=== PATIENT | female | born 1980 | race Caucasian/White ===

== ENCOUNTER 2023-12-09 10:36 | Outpatient (AMB) | payer MEDICAID, SELFPAY ==
--- NOTE | 2023-12-09 10:47 | A.OFFVIS_ITS ---
Intake Vital Signs 12/09/23 10:59 Height 5 ft 3 in Weight 144 lb 8 oz BMI 25.6 BP 130/60 Blood Pressure Location Lt brachial Position Sitting Respiration 16 Pulse 90 Pulse Source Pulse Oximeter Pulse Oximetry (%) 99 Oxygen Delivery Method Room Air Intake Visit Reasons: Coccygeal Pain/confirmed Intake Note: Patient comes in for initial visit was referred by spine. Reports pain 11/27. Allergies hydrocodone [From Vicodin] Allergy (Unknown, Verified 12/09/23 11:01) Unknown latex Allergy (Unknown, Verified 12/09/23 11:01) Unknown oxycodone [From Percocet] Allergy (Unknown, Verified 12/09/23 11:01) Unknown Penicillins Allergy (Unknown, Verified 12/09/23 11:01) Unknown HPI HPI Comments History of Present Illness Details Marcus ( pronounsed as Louise) is very pleasant 43 years old female who is in my office with complains on coccydynia. He is referred here by [facility]. She reported that in December 2020 she while on vacation in [place] from [place] into [place] and hit her coccyx. Since then she is suffering severe coccydynia. She reports that some images were done but did not demonstrate any fractures. She reports that because of her pain she can not sleep normally can not do activities of daily living she can not take care of herself but she can not function normally. In terms of ti ssue damage she reports her pain is pulsing, throbbing, pounding, sharp, cutting, lacerating, hot burning, searing, tingling, stinging, dull, achy, sectioning, suffocating, pink punishing and killing sensation. She reports that she is working full-time. She reports that sitting aggravates her pain and no oral medication help her pain. She reported [facility] injections which are described as coccygeal infiltration injections. They did about 4 injections of this nature to her with pain relief lasting from 3-4 month. However recently they refused to continue this procedures because the said that it is contraindicated for her they also reported that injections with time decreased in effectiveness. She was subject of multiple physical therapy examination. She tried chiropractic manipulations and acupuncture. She tried a massage therapy as well but none of it was effective for her pain control Past medical history significant for fibromyalgia, past surgical history significant for tubal ligation and tonsillectomy. Social history she is working full-time, she denies smoking cigarettes she occasionally drinks alcohol she occasionally uses cannabis gummies and she denies other recreational drugs. Review of Systems Const Denies chills and Denies fever(s) ENT Reports Normal hearing present Card Denies chest pain, Denies chest pain at rest, Denies chest pain with activity, Denies syncope, Denies rapid heart rate, Denies pedal edema and Denies edema Resp Denies chest congestion, Denies cough and Denies hemoptysis GI Denies abdominal pain Denies urinary incontinence Neuro Reports Normal hearing present, Denies Abnormal speech present, Denies syncope, Denies lack of coordination and Denies Sensory deficit (Neuro) Psych Denies no additional complaints and Denies depression Physical Exam Const General: cooperative, healthy appearing, comfortable, no acute distress, well developed, alert and awake Nutritional Appearance: average body habitus and well nourished Eyes General: appearance normal, both eyes and all related structures Pupils: Equal, round and reactive pupils present EOM: EOMs intact bilaterally Neck Neck: Yes full ROM Chest Chest palpation & inspection: normal inspection of the chest Resp Effort & Inspection: normal respiratory effort, able to speak in complete sentences, normal respiratory pattern, no audible wheezes and no cough Cardio Jugular venous distension: no JVD GI Inspection: Yes normal to inspection Back/Spine/Pelvis Other: Tenderness in projection of the tip of the coccyx. Neuro Cranial nerves: Yes CN's II-XII intact bilaterally, Yes Equal, round and reactive pupils present, Yes Normal hearing present and Yes Ability to bilaterally elevate shoulders present Speech: No Abnormal speech present Gait exam (Neuro): Normal gait present Motor exam (neuro): 5/5 motor strength present throughout Sensory Exam: No Sensory deficit (Neuro) Extrem General: No pedal edema Psych Speech and movement: Normal speech and movement present Affect: normal affect Attitude: cooperative Thought process: Normal thought process present Thought content: Normal thought content present Insight: Good insight present (Psych) Judgement: Good judgement present (Psych) Assessment & Plan Assessment & Plan (1) Coccydynia: Code(s): M53.3 - Sacrococcygeal disorders, not elsewhere classified (2) Chronic pain syndrome: Code(s): G89.4 - Chronic pain syndrome (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 First of all if she received infiltration of the coccygeal bones with steroid and never received ganglion impar at [facility] we can try ganglion impar injection. Depending on the effect of the ganglion impar we might continue it in the future or consider neuromodulation. Both spinal cord stimulator and intrathecal pain pump were discussed with the patient. She would need to go for psychological evaluation before considering trials for those modalities. She will bring me the information from [facility] on her next appointment about the nature of the procedures: I requested her to bring the disc with the images from the [facility] or bring me the detailed description of the procedures she received. Meanwhile she will be waiting for psychological evaluation. Coding Level of Care Code New Pt Level 3 (88984) Diagnoses Coccydynia M53.3 Chronic pain syndrome G89.4 Traumatic coccydynia M53.3
[2023-12-09 10:59] VITALS: BP 130/60; PULSE 90; RESP 16; O2SAT 99; BMI 25.6
== END 2023-12-09 11:14 | disposition home or self-care (01) ==
PROVIDERS: PCP Nurse Practitioner Family; Visit Provider Anesthesiology
DX: M53.3 Sacrococcygeal disorders, not elsewhere classified (principal); G89.4 Chronic pain syndrome
CPT/HCPCS: 99203

== ENCOUNTER → 2023-12-09 10:36 | Outpatient (BNVA) | payer MEDICAID, SELFPAY | PROVIDERS: PCP Nurse Practitioner Family; Visit Provider Anesthesiology | DX: M53.3 Sacrococcygeal disorders, not elsewhere classified (principal); G89.4 Chronic pain syndrome | CPT/HCPCS: 99202 ==

== ENCOUNTER 2024-04-15 15:19 | Outpatient (AMB) | payer OTHER, SELFPAY ==
--- NOTE | 2024-04-15 15:21 | MHC.OFFVIS ---
Vital Signs 04/15/24 15:27 Height 5 ft 3 in Weight 148 lb 4 oz BMI 26.3 BP 146/65 H Blood Pressure Location Lt brachial Position Sitting Respiration 17 Pulse 74 Pulse Source Pulse Oximeter Pulse Oximetry (%) 99 Oxygen Delivery Method Room Air Intake Visit Reasons: Nerve Block Discussion Intake Note: Patient comes in to discuss nerve block. Reports pain 5/10. Allergies hydrocodone [From Vicodin] Allergy (Unknown, Verified 04/15/24 15:27) Unknown latex Allergy (Unknown, Verified 04/15/24 15:27) Unknown oxycodone [From Percocet] Allergy (Unknown, Verified 04/15/24 15:27) Unknown Penicillins Allergy (Unknown, Verified 04/15/24 15:27) Unknown HPI Comments Details: Marcus ( pronounsed as Louise) is back in my office with continuous complain on coccydynia. She had several steroid injections done with 1 of the practitioners at [facility], I received the description of the procedure it sounds like the needle was placed next to the tip of the coccyx under fluoroscopy guidance. So it was not a ganglion impar. According to the patient it helped her for the next 6 months, however now pain is back. I am not sure if ganglion impar will work better for the patient. However she insists on scheduling it I will proceed with scheduling her for ganglion impar injection. We discussed possibility of treating the pain with neuromodulation such as pain pump. This will be implantable device patient is not very eager to go for implantable device at such a young age. We also discussed possibility of treating her ganglion impar with radiofrequency ablation, I honestly told her that I am not doing this procedure. Also chemical ablation with phenol and alcohol was discussed, however risk of this procedure to create rectal fistula is significant and patient does not want to consider this. We agreed that I will schedule her for ganglion impar injection and then we will see the results. Prior: is very pleasant 43 years old female who is in my office with complains on coccydynia. He is referred here by [facility]. She reported that in December 2020 she while on vacation in [place] and hit her coccyx. Since then she is suffering severe coccydynia. She reports that some images were done but did not demonstrate any fractures. She reports that because of her pain she can not sleep normally can not do activities of daily living she can not take care of herself but she can not function normally. In terms of tissue damage she reports her pain is pulsing, throbbing, pounding, sharp, cutting, lacerating, hot burning, searing, tingling, stinging, dull, achy, sectioning, suffocating, pink punishing and killing sensation. She reports that she is working full-time. She reports that sitting aggravates her pain and no oral medication help her pain. She reported that [facility] performed injections which are described as coccygeal infiltration injections. They did about 4 injections of this nature to her with pain relief lasting from 3-4 month. However recently they refused to continue this procedures because the said that it is contraindicated for her they also reported that injections with time decreased in effectiveness. She was subject of multiple physical therapy examination. She tried chiropractic manipulations and acupuncture. She tried a massage therapy as well but none of it was effective for her pain control Past medical history significant for fibromyalgia, past surgical history significant for tubal ligation and tonsillectomy. Social history she is working full-time, she denies smoking cigarettes she occasionally drinks alcohol she occasionally uses cannabis gummies and she denies other recreational drugs. Review of Systems Const All systems reviewed & are unremarkable except as noted in HPI and below ENT Reports Normal hearing present Neuro Reports Normal hearing present, Denies Abnormal speech present and Denies Sensory deficit (Neuro) Physical Exam Vital Signs: Last Vital Signs Pulse 74 04/15/24 15:27 Resp 17 04/15/24 15:27 BP 146/65 H 04/15/24 15:27 Pulse Ox 99 04/15/24 15:27 Oxygen Delivery Method Room Air 04/15/24 15:27 BMI result Body Mass Index 26.3 Const General: cooperative, healthy appearing, comfortable, no acute distress, well developed, alert and awake Nutritional Appearance: average body habitus and well nourished Eyes General: appearance normal, both eyes and all related structures Pupils: Equal, round and reactive pupils present EOM: EOMs intact bilaterally Neck Neck: Yes full ROM Chest Chest palpation & inspection: normal inspection of the chest Resp Effort & Inspection: normal respiratory effort, able to speak in complete sentences, normal respiratory pattern, no audible wheezes and no cough Cardio Jugular venous distension: no JVD GI Inspection: Yes normal to inspection Back/Spine/Pelvis Other: Tenderness in projection of the tip of the coccyx. Neuro Cranial nerves: Yes CN's II-XII intact bilaterally, Yes Equal, round and reactive pupils present, Yes Normal hearing present and Yes Ability to bilaterally elevate shoulders present Speech: No Abnormal speech present Gait exam (Neuro): Normal gait present Motor exam (neuro): 5/5 motor strength present throughout Sensory Exam: No Sensory deficit (Neuro) Extrem General: No pedal edema Psych Speech and movement: Normal speech and movement present Affect: normal affect Attitude: cooperative Thought process: Normal thought process present Thought content: Normal thought content present Insight: Good insight present (Psych) Judgement: Good judgement present (Psych) Assessment & Plan Assessment & Plan (1) Coccydynia: Code(s): M53.3 - Sacrococcygeal disorders, not elsewhere classified Category: Medical (2) Chronic pain syndrome: Code(s): G89.4 - Chronic pain syndrome Category: Medical (3) Traumatic coccydynia: Code(s): M53.3 - Sacrococcygeal disorders, not elsewhere classified Category: Medical Plan I will schedule this patient for ganglion impar injection. I will see her immediately after the procedure. The injections which she received at [facility] was directed to the tip of the coccyx. The injection gave her significant achievement of pain relief for up to 5 months. I told her that ganglion impar injection might not be as effective as the injection into the tip of the coccyx. She insists on me trying this procedure. RFA of the ganglion impar discussed, chemical ablation of ganglion impar discussed, the risks of creation of the perirectal fistula was explained to the patient. She is very negative about neuromodulation she is negative about implantable devices. Coding Level of Care Code Est Pt Level 3 (23497) Diagnoses Coccydynia M53.3 Chronic pain syndrome G89.4 Traumatic coccydynia M53.3
[2024-04-15 15:27] VITALS: BP 146/65; PULSE 74; RESP 17; O2SAT 99; BMI 26.3
== END 2024-04-15 15:46 | disposition home or self-care (01) ==
PROVIDERS: PCP Nurse Practitioner Family; Visit Provider Anesthesiology
DX: M53.3 Sacrococcygeal disorders, not elsewhere classified (principal); G89.4 Chronic pain syndrome
CPT/HCPCS: 99213

== ENCOUNTER → 2024-04-15 15:19 | Outpatient (BNVA) | payer OTHER, SELFPAY | PROVIDERS: PCP Nurse Practitioner Family; Visit Provider Anesthesiology | DX: M53.3 Sacrococcygeal disorders, not elsewhere classified (principal); G89.4 Chronic pain syndrome | CPT/HCPCS: 99212 ==

== ENCOUNTER 2024-06-09 06:25 | Outpatient (REF) | payer OTHER, SELFPAY ==
--- NOTE | ~2024-06-09 | FL_ITS ---
EXAMINATION: XR FLUOROSCOPY WITH IMAGES CLINICAL INFORMATION: Sacrococcygeal disorders, not elsewhere classified. COMPARISON: None available. TECHNIQUE: Fluoroscopy provided to: Dr. Grant Fluoroscopy time: 0.3 minutes DAP: 0.0855 [id number] Images: 4 FINDINGS: Sequential images demonstrate needle placement and injection into the left S5 nerve root sheath. FL/FL guidance in treatment room IMPRESSION: Fluoroscopic guidance. Please refer to the full operative report for details. Electronically signed by: Brendan Martinez MD 08/11/2024 11:46 AM EDT
== END 2024-06-09 06:26 | disposition home or self-care (01) ==
LOC: CF 06:25
PROVIDERS: Visit Provider Anesthesiology
DX: M53.3 Sacrococcygeal disorders, not elsewhere classified (principal); G89.4 Chronic pain syndrome
CPT/HCPCS: 64999; J2795; J3301; Q9967

== ENCOUNTER 2024-06-09 14:09 | Outpatient (AMB) | payer OTHER, SELFPAY ==
--- NOTE | 2024-06-09 14:40 | MHC.OFFVIS ---
Vital Signs 06/09/24 14:45 06/09/24 14:46 Height 5 ft 3 in 5 ft 3 in Weight 148 lb 4 oz 148 lb 4 oz BMI 26.3 26.3 BP 120/75 142/85 H Blood Pressure Location Lt brachial Lt brachial Position Sitting Sitting Respiration 16 17 Pulse 71 75 Pulse Source Pulse Oximeter Pulse Oximeter Pulse Oximetry (%) 98 99 Oxygen Delivery Method Room Air Room Air Comment pre-op post-op Intake Visit Reasons: ganglin impar block (okay to book @ time per ) Allergies hydrocodone [From Vicodin] Allergy (Unknown, Verified 06/09/24 14:48) Unknown latex Allergy (Unknown, Verified 06/09/24 14:48) Unknown oxycodone [From Percocet] Allergy (Unknown, Verified 06/09/24 14:48) Unknown Penicillins Allergy (Unknown, Verified 06/09/24 14:48) Unknown Physical Exam Vital Signs: Last Vital Signs Pulse 75 06/09/24 14:46 Resp 17 06/09/24 14:46 BP 142/85 H 06/09/24 14:46 Pulse Ox 99 06/09/24 14:46 Oxygen Delivery Method Room Air 06/09/24 14:46 BMI result Body Mass Index 26.3 Assessment & Plan Assessment & Plan (1) Coccydynia: Code(s): M53.3 - Sacrococcygeal disorders, not elsewhere classified Category: Medical Plan: ganglion impar injection. Informed consent was explained to the patient. All questions were explained and answered. The patient was taken inside the operating room. The patient was positioned prone on operating table . Time-out was performed delineating correct site, side, the nature of the procedure, patient's allergy, preoperative antibiotic if needed. All operating room staff was participating in OR time-out procedure. C-arm was brought over the operating field and picture of the patient's lower pelvis was demonstrated on the screen. coccygeal spine was delineated on the screen. intervertebral disc between coccyceal vertebrae 1 and 2 was chosen as the site of the needle insertion. The skin in the progection of the target was injected with local anesthetic lidocaine 2% 2 mls and after that 22 g 3&1/2 inch needle was inserted through the skin wheal and advanced to the disc on AP view in the strict midline fashion. After that the C-arm was switched to the lateral position and the needle was continued to slowly advance through the intervertebral disc on the lateral view 1-2 mm at a time. When the tip of the needle on the lateral view cleard 2 mm from the anterior surface of the coccygeal spine silhouette the injection of the contrast was performed demonstrating retropelvic spread of the contrast and no intravesicular, no intra rectal and no intravesicular spread of the contrast. After that treatment medicine solution was injected containing ropivacaine 0.5% 5 mls and kenalog 40 mg. After that the needle was removed and sterile dressing with bacitracin was applied.The patient tolerated procedure well. (2) Chronic pain syndrome: Code(s): G89.4 - Chronic pain syndrome Category: Medical (3) Traumatic coccydynia: Code(s): M53.3 - Sacrococcygeal disorders, not elsewhere classified Category: Medical Plan I will schedule this patient for ganglion impar injection. I will see her immediately after the procedure. The injections which she received at [facility] was directed to the tip of the coccyx. The injection gave her significant achievement of pain relief for up to 5 months. I told her that ganglion impar injection might not be as effective as the injection into the tip of the coccyx. She insists on me trying this procedure. RFA of the ganglion impar discussed, chemical ablation of ganglion impar discussed, the risks of creation of the perirectal fistula was explained to the patient. She is very negative about neuromodulation she is negative about implantable devices. Orders: Orders FL guidance in treatment room Today M53.3 - Sacrococcygeal disorders, not elsewhere classified Coding Level of Care Code Procedure Only Diagnoses Coccydynia M53.3 Chronic pain syndrome G89.4 Traumatic coccydynia M53.3
[2024-06-09 14:45] VITALS: BP 120/75; PULSE 71; RESP 16; O2SAT 98; BMI 26.3
[2024-06-09 14:46] VITALS: BP 142/85; PULSE 75; RESP 17; O2SAT 99; BMI 26.3
== END 2024-06-09 14:49 | disposition home or self-care (01) ==
PROVIDERS: PCP Internal Medicine; Visit Provider Anesthesiology
DX: G89.4 Chronic pain syndrome (principal); M53.3 Sacrococcygeal disorders, not elsewhere classified
CPT/HCPCS: 64999; 77002

== ENCOUNTER 2024-06-25 13:02 | Outpatient (AMB) | payer OTHER, SELFPAY ==
--- NOTE | 2024-06-25 13:16 | A.OFFVIS_ITS ---
Vital Signs 06/25/24 13:21 Height 5 ft 3 in Weight 148 lb 4 oz BMI 26.3 BP 150/72 H Blood Pressure Location Lt brachial Position Sitting Respiration 16 Pulse 69 Pulse Source Pulse Oximeter Pulse Oximetry (%) 98 Oxygen Delivery Method Room Air Intake Visit Reasons: Ganglin impar injection Intake Note: Patient comes in for post-op. Reports pain 4/10. Allergies hydrocodone [From Vicodin] Allergy (Unknown, Verified 06/09/24 14:48) Unknown latex Allergy (Unknown, Verified 06/09/24 14:48) Unknown oxycodone [From Percocet] Allergy (Unknown, Verified 06/09/24 14:48) Unknown Penicillins Allergy (Unknown, Verified 06/09/24 14:48) Unknown HPI Comments Details: Marcus ( pronounsed as Louise) is back in my office with continuous complain on coccydynia. She went for ganglion impar block, unfortunately that was not at all effective for her pain. We discussed today neuromodulation. I explained in details to her today intrathecal pain pump versus [employer] spinal cord stimulator. The patient expressed desire to go for chiropractic manipulation of the coccygeal spine. I explained to the patient that if she would get negative results from chiropractor it would be additionally supportive for our claimed to insurance company to do spinal cord stimulator or intrathecal pain pump to her. Prior: She had several steroid injections done with 1 of the practitioners at [facility], I received the description of the procedure it sounds like the needle was placed next to the tip of the coccyx under fluoroscopy guidance. So it was not a ganglion impar. According to the patient it helped her for the next 6 months, however now pain is back. I am not sure if ganglion impar will work better for the patient. However she insists on scheduling it I will proceed with scheduling her for ganglion impar injection. Prior: Long history of coccydynia. He is referred here by [facility]. She reported that in December 2020 she while on vacation in [place] and hit her coccyx. Since then she is suffering severe coccydynia. She reports that some images were done but did not demonstrate any fractures. She reports that because of her pain she can not s leep normally can not do activities of daily living she can not take care of herself but she can not function normally. She reports that she is working full- time. She reports that sitting aggravates her pain and no oral medication help her pain. She reported that [facility] performed injections which are described as coccygeal infiltration injections. They did about 4 injections of this nature to her with pain relief lasting from 3-4 month. Review of Systems Const All systems reviewed & are unremarkable except as noted in HPI and below ENT Reports Normal hearing present Neuro Reports Normal hearing present, Denies Abnormal speech present and Denies Sensory deficit (Neuro) Physical Exam Vital Signs: Last Vital Signs Pulse 69 06/25/24 13:21 Resp 16 06/25/24 13:21 BP 150/72 H 06/25/24 13:21 Pulse Ox 98 06/25/24 13:21 Oxygen Delivery Method Room Air 06/25/24 13:21 BMI result Body Mass Index 26.3 Const General: cooperative, healthy appearing, comfortable, no acute distress, well developed, alert and awake Nutritional Appearance: average body habitus and well nourished Eyes General: appearance normal, both eyes and all related structures Pupils: Equal, round and reactive pupils present EOM: EOMs intact bilaterally Neck Neck: Yes full ROM Chest Chest palpation & inspection: normal inspection of the chest Resp Effort & Inspection: normal respiratory effort, able to speak in complete sentences, normal respiratory pattern, no audible wheezes and no cough Cardio Jugular venous distension: no JVD GI Inspection: Yes normal to inspection Back/Spine/Pelvis Other: Tenderness in projection of the tip of the coccyx. Neuro Cranial nerves: Yes CN's II-XII intact bilaterally, Yes Equal, round and reactive pupils present, Yes Normal hearing present and Yes Ability to bilaterally elevate shoulders present Speech: No Abnormal speech present Gait exam (Neuro): Normal gait present Motor exam (neuro): 5/5 motor strength present throughout Sensory Exam: No Sensory deficit (Neuro) Extrem General: No pedal edema Psych Speech and movement: Normal speech and movement present Affect: normal affect Attitude: cooperative Thought process: Normal thought process present Thought content: Normal thought content present Insight: Good insight present (Psych) Judgement: Good judgement present (Psych) Assessment & Plan Assessment & Plan (1) Coccydynia: Code(s): M53.3 - Sacrococcygeal disorders, not elsewhere classified Category: Medical (2) Chronic pain syndrome: Code(s): G89.4 - Chronic pain syndrome Category: Medical (3) Traumatic coccydynia: Code(s): M53.3 - Sacrococcygeal disorders, not elsewhere classified Category: Medical Plan Ganglion impar injection did not result in good pain relief. She was explained today neuromodulation. In the past we discussed RFA of the ganglion impar but that would be only indicated if ganglion impar injection would be effective. She wants to try chiropractic manipulations. At this time I would have to introduce Complex regional pain syndrome of the coccygeal area as a diagnosis for this patient. The patient received [employer] brochure if she decides to go to neuromodulation would need to schedule herself for psychological evaluation with [employer] [facility].. Patient Instructions: I here by testify that I spent 32 minutes in conversation with this patient as well as planning her care and organizing this note. Coding Level of Care Code Est Pt Level 4 (87657) Diagnoses Coccydynia M53.3 Chronic pain syndrome G89.4 Traumatic coccydynia M53.3
[2024-06-25 13:21] VITALS: BP 150/72; PULSE 69; RESP 16; O2SAT 98; BMI 26.3
== END 2024-06-25 13:42 | disposition home or self-care (01) ==
PROVIDERS: PCP Internal Medicine; Visit Provider Anesthesiology
DX: G89.4 Chronic pain syndrome (principal); M53.3 Sacrococcygeal disorders, not elsewhere classified
CPT/HCPCS: 99214

== ENCOUNTER → 2024-06-25 13:02 | Outpatient (BNVA) | payer OTHER, SELFPAY | PROVIDERS: PCP Internal Medicine; Visit Provider Anesthesiology | DX: M53.3 Sacrococcygeal disorders, not elsewhere classified (principal); G89.4 Chronic pain syndrome | CPT/HCPCS: 99212 ==